=== PATIENT | female | born 1960 | race Caucasian/White ===

== ENCOUNTER 2017-12-13 10:36 | Emergency (ER) | payer OTHER ==
[2017-12-13 10:47] VITALS: BP 119/86
== END 2017-12-13 12:39 | disposition home or self-care (01) ==
LOC: ED 10:36
DX: S20.211A Contusion of right front wall of thorax, initial encounter (principal); E03.9 Hypothyroidism, unspecified; W18.39XA Other fall on same level, initial encounter; Y93.89 Activity, other specified; Y92.89 Other specified places as the place of occurrence of the external cause; Y99.8 Other external cause status